=== PATIENT | female | born 1945 | race Caucasian/White ===

== ENCOUNTER → 2017-03-01 | Outpatient (CLI) | payer OTHER ==
[~2017-03-01] MED LIST: IOPAMIDOL (ISOVUE-300) 100 ML BTL ONE
== END ==
LOC: FIMAGING 07:45
PROVIDERS: ATTEND Internal Medicine Hematology & Oncology
DX: D25.9 Leiomyoma of uterus, unspecified (principal); M85.40 Solitary bone cyst, unspecified site; C50.412 Malignant neoplasm of upper-outer quadrant of left female breast
CPT/HCPCS: Q9967

== ENCOUNTER → 2017-03-20 | Outpatient (CLI) | payer OTHER | LOC: FIMAGING 07:41 | PROVIDERS: ATTEND Internal Medicine Hematology & Oncology | DX: Z12.31 Encounter for screening mammogram for malignant neoplasm of breast (principal); Z85.3 Personal history of malignant neoplasm of breast | CPT/HCPCS: G0202 ==

== ENCOUNTER → 2018-04-04 | Outpatient (CLI) | payer OTHER | LOC: FIMAGING 11:22 | PROVIDERS: ATTEND Internal Medicine Hematology & Oncology | DX: Z12.31 Encounter for screening mammogram for malignant neoplasm of breast (principal); Z85.3 Personal history of malignant neoplasm of breast ==